=== PATIENT | female | born 1965 | race Caucasian/White ===

== ENCOUNTER 2025-03-14 14:43 | Emergency (ER) | payer BC ==
--- NOTE | 2025-03-14 15:32 | ERPHSYRPT ---
- History of Present Illness Time Seen by Provider: 03/14/25 15:25 Source: patient, family Exam Limitations: no limitations Physician History: This is a 59-year-old white female patient who has had cough and shortness of breath for 5 days. 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 Today she is at 30 mg of prednisone a day. She states that overall her symptoms are improving but she does not feel that she is improved to the point where she should be. She denies chest pain. Her room air oxygen saturation level is 99 to 100%. Patient has a history of hypertension, migraine headaches, arthritis and fibromyalgia. She feels she may be dehydrated as well. What the patient would like today is a chest x-ray, IV fluids, Rocephin intravenous antibiotic boost and steroid boost intravenously. She also wants to check electrolytes and a urine to make sure she is or is not dehydrated. Within the last week, she has taken 2 COVID test and they both been negative and she does not want to repeat those studies Severity: mild (To moderate) Associated Symptoms: shortness of breath, cough, fever, No chest pain Allergies/Adverse Reactions: levofloxacin [From Levaquin] Allergy (Verified 03/14/25 15:31) Home Medications: Amitriptyline HCl 25 mg [Elavil 25 mg] 25 mg PO DAILY 07/09/16 [History] Aspirin 81 mg PO HS 07/09/16 [History] Calcium Carbonate/Vitamin D3 [Calcium 500 + D Tablet] 1 each PO DAILY 07/09/16 [History] Cinnamon Bark/Chromium/Ala [Cinnamon Alpha Lipoic Acid Cap] 1 each PO DAILY 07/09/16 [History] Coconut Oil 1,000 mg PO DAILY 07/09/16 [History] Docusate Sodium [Colace] 100 mg PO UD 07/09/16 [History] Fexofenadine HCl [Alva] 180 mg PO DAILY 07/09/16 [History] Glucosamine/Chondroitin/C/Zachariah [Glucosamine Chondroitin Caplet] 2 each PO DAILY 07/09/16 [History] Hctz/Triamterene 25/37.5 mg [Maxzide 25MG] 12.5 mg PO DAILY 07/09/16 [History] Lisinopril 10 mg [Zestril 10 MG] 10 mg PO 07/09/16 [History] Meclizine HCl 25 mg [Antivert 25 mg] 25 mg PO HS 07/09/16 [History] Melatonin/Theanine [Melatonin Forte 3 mg Tablet] 1 each PO HS 07/09/16 [History] Metoprolol Succinate 25 mg Xl* [Toprol-Xl 25MG Tablets] 25 mg PO HS 07/09/16 [History] Multivitamin [Daily Multivitamin] 1 ea PO DAILY 07/09/16 [History] Potassium Chloride 20 Meq [Klor-Con 20 MEQ] 20 meq PO DAILY 07/09/16 [History] Travel Risk - International Travel Have you traveled outside of the country in past 3 weeks: No - Emerging Infectious Disease Are you exhibiting symptoms associated with any current EIDs: Yes Symptoms: Cough: New Onset, Shortness of Breath - Review of Systems Constitutional: Fever Eyes: No Symptoms Ears, Nose, & Throat: No Symptoms Respiratory: Cough, Dyspnea Cardiac: No Symptoms Abdominal/Gastrointestinal: No Symptoms Genitourinary Symptoms: No Symptoms Musculoskeletal: No Symptoms Skin: No Symptoms Neurological: No Symptoms Psychological: No Symptoms Endocrine: No Symptoms Hematologic/Lymphatic: No Symptoms Immunological/Allergic: No Symptoms All Other Systems: Reviewed and Negative - Past Medical History Pertinent Past Medical History: Yes Neurological History: Migraines ENT History: No Pertinent History Cardiac History: Hypertension Respiratory History: No Pertinent History Endocrine Medical History: No Pertinent History Musculoskeletal History: Arthritis, Fibromyalgia GI Medical History: Gallbladder Disease History: No Pertinent History Psycho-Social History: No Pertinent History Female Reproductive Disorders: No Pertinent History Other Medical History: HAS R LATERAL EPICONDYLITIS - Past Surgical History Past Surgical History: Yes Neuro Surgical History: No Pertinent History Cardiac: No Pertinent History Respiratory: No Pertinent History Gastrointestinal: Cholecystectomy Genitourinary: No Pertinent History Musculoskeletal: No Pertinent History Female Surgical History: No Pertinent History Other Surgical History: t&a 1969, Autumn sarah 1996 - Social History Smoking Status: Never smoker Exposure to second hand smoke: No Drug Use: none - Nursing Vital Signs Nursing Vital Signs: Initial Vital Signs Blood Pressure 179/85 03/14/25 15:29 O2 Sat by Pulse Oximetry 95 03/14/25 15:29 Pain Scale Pain Intensity 6 - Physical Exam General Appearance: no apparent distress, alert, anxiety Eye Exam: PERRL/EOMI, eyes nml inspection Ears, Nose, Throat Exam: normal ENT inspection, moist mucous membranes Neck Exam: normal inspection, non-tender, supple, full range of motion Respiratory Exam: normal breath sounds, lungs clear, airway intact, No chest tenderness, No respiratory distress Cardiovascular Exam: regular rate/rhythm, normal heart sounds, normal peripheral pulses Gastrointestinal/Abdomen Exam: soft, normal bowel sounds, No tenderness Pelvic Exam: not done Rectal Exam: not done Back Exam: normal inspection, normal range of motion, No CVA tenderness, No vertebral tenderness Extremity Exam: normal inspection, normal range of motion, pelvis stable Neurologic Exam: alert, oriented x 3, cooperative, baby sitter II-XII nml as tested, normal mood/affect, nml cerebellar function, nml station & gait, sensation nml Skin Exam: normal color, warm, dry Lymphatic Exam: No adenopathy SpO2 Interpretation: normal O2 Delivery: Room Air - Course Nursing assessment & vital signs reviewed: Yes Ordered Tests: Active Orders 24 hr Category Date Time 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 Care 03/14/25 16:10 Active IV Insertion STAT Care 03/14/25 16:09 Active Pulse Oximetry (ED) STAT Care 03/14/25 16:09 Active CHEST 1 VIEW (PORTABLE) Stat Exams 03/14/25 16:09 Completed BLOOD CULTURE Stat Lab 03/14/25 16:09 Received CBC W DIFF Stat Lab 03/14/25 16:30 Completed CMP Stat Lab 03/14/25 16:30 Completed Lactic Acid Stat Lab 03/14/25 16:30 Completed MAGNESIUM Stat Lab 03/14/25 16:30 Completed MONO SCREEN Stat Lab 03/14/25 16:30 Completed Manual Differential NC Stat Lab 03/14/25 16:30 Completed NT PRO BNPII Stat Lab 03/14/25 16:30 Completed UA W/RFX UR CULTURE Stat Lab 03/14/25 17:09 Completed Medication Summary Discontinued Medications Generic Name Dose Route Start Last Admin Trade Name Freq PRN Reason Stop Dose Admin Albuterol Sulfate 2.5 mg 03/14/25 16:10 03/14/25 16:26 Albuterol Sulfate 2.5 Mg/3 Ml Neb IH 03/14/25 16:11 2.5 mg STAT ONE Administration Albuterol Sulfate Confirm 03/14/25 16:23 Albuterol Sulfate 2.5 Mg/3 Ml Neb Administered 03/14/25 16:24 Dose 2.5 mg IH .STK-MED ONE Ceftriaxone Sodium 1,000 mg 03/14/25 17:17 03/14/25 18:06 Ceftriaxone Sodium 1000 Mg Inj Vial IM 03/14/25 17:18 1,000 mg STAT ONE Administration Ceftriaxone Sodium Confirm 03/14/25 17:53 Ceftriaxone Sodium 1000 Mg Inj Vial Administered 03/14/25 17:54 Dose 1,000 mg .ROUTE .STK-MED ONE Ceftriaxone Sodium 1 gm in 100 mls @ 200 mls/hr 03/14/25 16:10 03/14/25 16:49 Rocephin 1 Gm / 100 Ml Nacl IV 03/14/25 16:39 200 mls/hr STAT ONE 200 mls/hr Administration Ceftriaxone Sodium Confirm 03/14/25 16:48 Rocephin 1 Gm / 100 Ml Nacl Administered 03/14/25 16:49 Dose 1 gm in 100 mls @ ud IV .STK-MED ONE Lidocaine HCl Confirm 03/14/25 17:54 Lidocaine Hcl 1% 20 Ml Mdv 20 Ml Ml Administered 03/14/25 17:55 Dose 1 ml .ROUTE .STK-MED ONE Ondansetron HCl 4 mg 03/14/25 17:17 03/14/25 18:06 Zofran 4 Mg/Udtablet Orally Disintegrating PO 03/14/25 17:18 4 mg STAT ONE Administration Ondansetron HCl Confirm 03/14/25 17:53 Zofran 4 Mg/Udtablet Orally Disintegrating Administered 03/14/25 17:54 Dose 4 mg .ROUTE .STK-MED ONE Potassium Chloride 20 meq 03/14/25 18:05 Potassium Chloride Tab 10 Meq Tab PO 03/14/25 18:06 STAT ONE Lab/Rad Data: Laboratory Result Diagrams 03/14/25 16:30 03/14/25 16:30 Laboratory Results 03/14/25 03/14/25 03/14/25 Range/Units 17:09 16:30 16:30 WBC (3.98-10.04) x10^3/uL RBC (3.93-5.22) x10^6/uL Hgb (11.2-15.7) g/dL Hct (34.1-44.9) % MCV (79.4-94.8) fL MCH (25.6-32.2) pg MCHC (32.2-35.5) g/dL RDW (11.7-14.4) % Plt Count (182-369) x10^3/uL MPV (9.4-12.3) fL Segmented Neutrophils (34.0-71.1) % Band Neutrophils (0.0-2.0) % Lymphocytes (Manual) (19.3-51.7) % Monocytes (Manual) (4.7-12.5) % Atypical Lymphocytes % Platelet Estimate (NORMAL) RBC Morphology Sodium 137 (135-145) mmol/L Potassium 3.3 L (3.5-5.1) mmol/L Chloride 97 L (98-107) mmol/L Carbon Dioxide 28 (22-30) mmol/L Anion Gap 14.9 (5-15) MEQ/L BUN 14 (7-17) mg/dL Creatinine 0.88 (0.52-1.04) mg/dL Estimated GFR 75.7 ML/MIN Glucose 117 H (74-106) mg/dL Lactic Acid (0.4-2.0) Calcium 9.2 (8.4-10.2) mg/dL Magnesium 2.2 (1.6-2.3) mg/dL Total Bilirubin 0.50 (0.2-1.3) mg/dL AST 46 H (14-36) U/L ALT 28 (0-35) U/L Alkaline Phosphatase 71 (38-126) U/L NT-Pro-B Natriuret Pep 183 (<300) pg/mL Serum Total Protein 7.2 (6.3-8.2) g/dL Albumin 4.6 (3.5-5.0) g/dL Urine Color Yellow (Yellow) Urine Appearance Clear (Clear) Urine pH 6.5 (4.6-8.0) Ur Specific [place] 1.025 (1.005-1.030) Urine Protein 30 (Negative) Urine Glucose (UA) Negative (Negative) mg/dL Urine Ketones Trace A (Negative) Urine Blood Negative (Negative) Urine Nitrite Negative (Negative) Urine Bilirubin Negative (Negative) Urine Urobilinogen 1.0 A (0.2) mg/dL Ur Leukocyte Esterase Small A (Negative) U Hyaline Cast (Auto) NONE SEEN (0-2) /LPF Urine Microscopic RBC 3-5 (0-5) /HPF Urine Microscopic WBC 3-5 (0-5) /HPF Ur Epithelial Cells Rare (None Seen) /HPF Urine Bacteria None Seen (None Seen) /HPF Urine Culture Reflexed NO (NO) Monoscreen NEGATIVE (NEGATIVE) 03/14/25 03/14/25 Range/Units 16:30 16:30 WBC 3.0 L (3.98-10.04) x10^3/uL RBC 3.90 L (3.93-5.22) x10^6/uL Hgb 11.7 (11.2-15.7) g/dL Hct 34.9 (34.1-44.9) % MCV 89.5 (79.4-94.8) fL MCH 30.0 (25.6-32.2) pg MCHC 33.5 (32.2-35.5) g/dL RDW 12.9 (11.7-14.4) % Plt Count 193 (182-369) x10^3/uL MPV 9.6 (9.4-12.3) fL Segmented Neutrophils 54 (34.0-71.1) % Band Neutrophils 1 (0.0-2.0) % Lymphocytes (Manual) 34 (19.3-51.7) % Monocytes (Manual) 7 (4.7-12.5) % Atypical Lymphocytes 4 % Platelet Estimate NORMAL (NORMAL) RBC Morphology NORMAL Sodium (135-145) mmol/L Potassium (3.5-5.1) mmol/L Chloride (98-107) mmol/L Carbon Dioxide (22-30) mmol/L Anion Gap (5-15) MEQ/L BUN (7-17) mg/dL Creatinine (0.52-1.04) mg/dL Estimated GFR ML/MIN Glucose (74-106) mg/dL Lactic Acid 1.2 (0.4-2.0) Calcium (8.4-10.2) mg/dL Magnesium (1.6-2.3) mg/dL Total Bilirubin (0.2-1.3) mg/dL AST (14-36) U/L ALT (0-35) U/L Alkaline Phosphatase (38-126) U/L NT-Pro-B Natriuret Pep (<300) pg/mL Serum Total Protein (6.3-8.2) g/dL Albumin (3.5-5.0) g/dL Urine Color (Yellow) Urine Appearance (Clear) Urine pH (4.6-8.0) Ur Specific [place] (1.005-1.030) Urine Protein (Negative) Urine Glucose (UA) (Negative) mg/dL Urine Ketones (Negative) Urine Blood (Negative) Urine Nitrite (Negative) Urine Bilirubin (Negative) Urine Urobilinogen (0.2) mg/dL Ur Leukocyte Esterase (Negative) U Hyaline Cast (Auto) (0-2) /LPF Urine Microscopic RBC (0-5) /HPF Urine Microscopic WBC (0-5) /HPF Ur Epithelial Cells (None Seen) /HPF Urine Bacteria (None Seen) /HPF Urine Culture Reflexed (NO) Monoscreen (NEGATIVE) - Progress Progress: improved, re-examined Progress Note: 03/14/25 17:05 My medical decision making and the assignment of moderate complexity of this patient's medical issue today is based on review of the patient's past medical history, review the patient's medication list, reviewed patient drug allergy list, history presence of physical findings on examination. The workup today includes placement of an intravenous line, CBC, CMP, magnesium level, chest x- ray, Rocephin 1 g intravenously and 125 mg intravenous Solu-Medrol. In addition I ordered a urinalysis. This is the workup that the patient agreed to. I think this is reasonable. We both had a discussion regarding troponin and D- dimer. The patient and I think this patient is low risk for myocardial infarction and low risk for pulmonary embolus and therefore she is declining the troponin and D-dimer. Differential diagnosis includes but is not limited to upper respiratory infection, viral illness, electrolyte abnormalities, anemia, pneumonia, dehydration 03/14/25 18:07 I interpreted the patient's laboratory data results. Based on the laboratory data results, there is mild hypokalemia present as well as mild leukopenia. There are no other acute, emergent medical issues. The preliminary report of the chest x-ray was interpreted by me. I do not see a definite pulmonary infiltrate. The final chest x-ray report was interpreted by the radiologist and I reviewed the impression. The impression states exaggerated vascular and interstitial lung markings bilaterally. No pneumonic consolidation. Counseled pt/family regarding: lab results, diagnosis, need for follow-up, rad results Medical Desision Making - Independent Historian Additional History obtained from: Spouse - Diagnostic Testing Diagnostic test were ordered, analyzed, and reviewed by me: Yes Radiological Interpretation: Interpreted by me, Reviewed by me, Teleradiologist Report - Risk of complications Low Risk: Low risk of morbidity from additional dx testing or treatment - Departure Departure Disposition: Home Clinical Impression: Shortness of breath, Hypokalemia, Interstitial lung abnormality (ANDREA) Condition: Stable Critical Care Time: No Referrals: DEISY EDWARDS PA [Primary Care Provider, UNKNOWN] - Follow up/PCP as directed Additional Instructions: Drink plenty of fluids. Avoid exposure to any type of smoke. Continue your nebulizer treatments every 4 hours while awake for the next 48 hours. Continue your steroids and continue your antibiotics as prescribed. Call your primary care provider tomorrow, 03/15/2025, to make arrangement for follow-up appointment to be seen in the next 3 to 5 days. Prescriptions: Ondansetron ODT 4 MG [Zofran Odt 4 mg] 4 mg PO Q6H PRN PRN #10 tablet PRN Reason: Vomiting
[2025-03-14 15:44] VITALS: RESP 18; TEMP 97
[2025-03-14] MEDS ORDERED: PROVENTIL 2.5 MG/3 ML NEB IH ONE (16:23)
[2025-03-14] MEDS: PROVENTIL 2.5 MG/3 ML NEB IH ONE (16:26)
[2025-03-14 16:42] LABS: Hematocrit 34.9 % (34.1-44.9); Hemoglobin 11.7 g/dL (11.2-15.7); Mean Cell Volume 89.5 fL (79.4-94.8); Mean Corpuscular Hgb Concent. 33.5 g/dL (32.2-35.5); Mean Platelet Volume 9.6 fL (9.4-12.3); Platelet Count 193 x10^3/uL (182-369); Red Cell Distribution Width 12.9 % (11.7-14.4)
[2025-03-14] MEDS ORDERED: ROCEPHIN 1 GM / 100 ML NaCl 1 GM/100 ML IVPB IV ONE (16:48)
[2025-03-14] MEDS: ROCEPHIN 1 GM / 100 ML NaCl 1 GM/100 ML IVPB IV ONE (16:49)
[2025-03-14 17:06] LABS: ALBUMIN 4.6 g/dL (3.5-5.0); ANION GAP 14.9 MEQ/L (5-15); BILIRUBIN,TOTAL 0.5 mg/dL (0.2-1.3); Calcium 9.2 mg/dL (8.4-10.2); Creatinine 1 0.88 mg/dL (0.52-1.04); EST GLOMERULAR FILTRATION RATE 75.7 ML/MIN; MAGNESIUM 2.2 mg/dL (1.6-2.3); Potassium 3.3 mmol/L (3.5-5.1); Total Protein 7.2 g/dL (6.3-8.2)
[2025-03-14 17:24] LABS: Appearance Clear (Clear); Bacteria None Seen /HPF (None Seen); Bilirubin Negative (Negative); Blood Negative (Negative); Epithelial Cells Rare /HPF (None Seen); Glucose, Urine Negative (Negative); Hyaline Casts NONE SEEN /LPF (0-2); Ketones Trace (Negative); Leukocyte Esterase Small (Negative); Nitrite Negative (Negative); Ph 6.5 (4.6-8.0); Protein,Urine Dip 30 (Negative); Specific Gravity 1.025 (1.005-1.030)
--- NOTE | 2025-03-14 17:46 | XRAY ---
CLINICAL HISTORY: Fever; shortness of breath COMPARISON: X-ray dated 07/08/2016. TECHNIQUE: X-ray images of the chest were obtained in anteroposterior (AP) portable projection.. FINDINGS: Exaggerated vascular and interstitial lung markings bilaterally. No definite pneumonic consolidation. No pulmonary masses or gross nodules No evidence of pleural effusion or pleural thickening. Heart and Mediastinum: Heart size and shape are normal. No hilar or mediastinal lymphadenopathy. Bony Thorax: Grossly unremarkable. Soft Tissues: Soft tissues overlying the chest wall are unremarkable. IMPRESSION: 1. Exaggerated vascular and interstitial lung markings bilaterally. Correlate with clinical findings. stable. 2. Resolved left lower lung opacity. Electronically Signed by: Kevin Pond MD. (03/14/2025 17:43:12 EDT)
[2025-03-14 17:50] LABS: ATYPICAL LYMPHS 4 %; BAND 1 % (0.0-2.0); Lymphocytes 34 % (19.3-51.7); Monocyte 7 % (4.7-12.5); Neutrophils 54 % (34.0-71.1); Platelet Estimate NORMAL (NORMAL); Total Cells Counted 100
[2025-03-14] MEDS ORDERED: ZOFRAN ODT 4 MG ONE (17:53)
[2025-03-14] MEDS ORDERED: Rocephin 1000 MG INJ ONE (17:53)
[2025-03-14] MEDS ORDERED: XYLOCAINE 1% HCL 20 ML MDV ONE (17:54)
[2025-03-14] MEDS: ZOFRAN ODT 4 MG PO ONE (18:06)
[2025-03-14] MEDS: Rocephin 1000 MG INJ IM ONE (18:06)
[2025-03-14] MEDS ORDERED: Klor Con ONE (18:28)
[2025-03-14] MEDS: Klor Con PO ONE (18:29)
[2025-03-14 18:40] VITALS: BP 153/94; PULSE 77; O2SAT 98
== END 2025-03-14 18:43 | disposition home or self-care (01) ==
LOC: ED 14:43
DX: R06.02 Shortness of breath (principal); E87.6 Hypokalemia; J84.9 Interstitial pulmonary disease, unspecified; I10 Essential (primary) hypertension; R05.9 Cough, unspecified
CPT/HCPCS: 36415; 71045; 80053; 81001; 83605; 83735; 83880; 85025; 86308; 87040; 93041; 94640; 94760; 96365; 96372; 99284; J0696; J7609; Q0162; A9270-GY